=== PATIENT | male | born 1970 | race Caucasian/White ===

== ENCOUNTER 2022-07-06 19:00 | Emergency (ER) | payer MEDICAID ==
[~2022-07-06] VITALS: Ht 190.5 cm; Wt 85.0 kg
[~2022-07-06 19:00] MED LIST: ACYC-129 PO; CLIN-26 PO; RIFA300C9 PO
[2022-07-06] MEDS ORDERED: cephalexin 500mg capsule PO ONE (21:55)
[2022-07-06] MEDS ORDERED: UREA227C4 TOP (21:56)
[2022-07-06] MEDS ORDERED: CEPH500C2 PO (21:58)
[2022-07-06 23:20] LABS: CLARITY,URINE CLEAR (Clear); COLOR,URINE YELLOW (Yellow); GLUCOSE, URINE NEGATIVE (Neg); KETONES,URINE 15 mg/dl (Neg); LEUKOCYTE ESTERASE ,URINE NEGATIVE (Neg); NITRITES, URINE NEGATIVE (Neg); OCCULT BLOOD,URINE NEGATIVE (Neg); PROTEIN,URINE NEGATIVE (Neg); UROBILINOGEN,URINE 0.2 E.U/dL (0.2-1.0)
[2022-07-06 23:21] LABS: UA COLLECTION TYPE CLN CATCH MIDSTREAM
[2022-07-06 23:33] VITALS: BP 136/85
== END 2022-07-06 22:30 | disposition home or self-care (01) ==
LOC: ER 19:01
DX: Q82.8 Other specified congenital malformations of skin (principal); K59.00 Constipation, unspecified; Z72.89 Other problems related to lifestyle; Z88.1 Allergy status to other antibiotic agents; Z79.2 Long term (current) use of antibiotics; Z79.899 Other long term (current) drug therapy
CPT/HCPCS: 81003; 93005; 99284

== ENCOUNTER 2022-10-25 17:03 | Emergency (ER) | payer MEDICAID ==
[~2022-10-25] VITALS: Ht 190.5 cm; Wt 97.7 kg
[~2022-10-25 17:03] MED LIST changes: +UREA227C4 TOP
[2022-10-25 17:06] VITALS: BP 125/83
== END 2022-10-25 18:53 | disposition home or self-care (01) ==
LOC: ER 17:03
DX: S00.81XA Abrasion of other part of head, initial encounter (principal); Z72.89 Other problems related to lifestyle; Z88.1 Allergy status to other antibiotic agents; Z79.2 Long term (current) use of antibiotics; Z79.899 Other long term (current) drug therapy; W19.XXXA Unspecified fall, initial encounter; Y93.89 Activity, other specified; Y92.89 Other specified places as the place of occurrence of the external cause; Y99.8 Other external cause status
CPT/HCPCS: 70450; 99284

== ENCOUNTER 2024-04-26 13:10 | Emergency (ER) | payer MEDICAID ==
[~2024-04-26] VITALS: Ht 190.5 cm; Wt 86.4 kg
[~2024-04-26 13:10] MED LIST changes: +RIFA300C65 PO; -RIFA300C9 PO
[2024-04-26] MEDS: ondansetron 4mg rapidly disintigrating tab PO ONE (14:54)
[2024-04-26] MEDS: HYDROcodone/acetaminophen 10/325mg tab PO ONE (14:55)
[2024-04-26 15:11] LABS: BASOPHILS % (AUTO) 0.6 % (0-1); EOSINOPHILS # (AUTO) 0.4 X10'3 (0-0.9); EOSINOPHILS % (AUTO) 5.4 % (0-6); HEMATOCRIT 39.2 % (42.0-52.0); HEMOGLOBIN 12.9 g/dl (14.0-17.9); LYMPHOCYTES % (AUTO) 13.9 % (21-51); MEAN CORPUSCULAR HEMOGLOBIN 29.5 PG (27.0-31.0); MEAN CORPUSCULAR HGB CONC 32.9 g/dL (33.0-36.5); MEAN CORPUSCULAR VOLUME 89.5 FL (78-98); MEAN PLATELET VOLUME 6.9 FL (7.4-10.4); MONOCYTES # (AUTO) 0.4 X10'3 (0-0.9); MONOCYTES % (AUTO) 5.6 % (2-12); NEUTROPHILS # (AUTO) 5.4 X10'3 (1.8-7.7); NEUTROPHILS % (AUTO) 74.5 % (42-75); PLATELET COUNT 258 X10'3 (140-440); RED BLOOD COUNT 4.38 X10'6 (4.70-6.10); RED CELL DISTRIBUTION WIDTH 14.7 % (11.5-14.5); WHITE BLOOD COUNT 7.2 X10'3 (4.5-11.0)
[2024-04-26 15:17] LABS: APTT 26 SECONDS (22-32); INR 1.1 INR
[2024-04-26 15:21] LABS: ALANINE AMINOTRANSFERASE 15 U/L (12-78); ALBUMIN 3.3 G/DL (3.4-5.0); ALBUMIN/GLOBULIN RATIO 0.8 (1.1-1.5); ALKALINE PHOSPHATASE 58 IU/L (46-116); ANION GAP 6 (8-16); ASPARTATE AMINO TRANSFERASE 18 U/L (10-37); BILIRUBIN,TOTAL 0.5 MG/DL (0.1-1.0); BLOOD UREA NITROGEN 13 MG/DL (7-18); BUN/CREATININE RATIO 12.9 (10.0-20.0); C-REACTIVE PROTEIN 0.31 MG/DL (0.0-0.5); CALCIUM 8.7 MG/DL (8.5-10.1); CHLORIDE 102 MMOL/L (99-107); CREATININE 1.01 MG/DL (0.60-1.10); GLUCOSE 95 MG/DL (70-104); POTASSIUM 4.5 MMOL/L (3.5-5.1); SODIUM 138 MMOL/L (135-145); TOTAL CARBON DIOXIDE 29.7 MMOL/L (24-32); TOTAL PROTEIN 7.6 G/DL (6.4-8.2); eCRCL 101 ML/MIN; eGFR 77 ML/MIN
[2024-04-26] MEDS: clindamycin 300mg/D5W 50mL 50 ML IV STA (16:25)
[2024-04-26] MEDS: ketorolac trometh. 30mg/ml inj. IM ONE (16:25)
[2024-04-26] MEDS: diphenhydrAMINE 50 mg/ml inj IV ONE (16:26)
[2024-04-26] MEDS: dexamethasone sod phosphate 10mg/ml inj IV STA (16:26)
[2024-04-26] MEDS: CefTRIAXone/D5W-Rocephin 1gm 50 ML IV STA (16:56)
[2024-04-26 17:50] VITALS: BP 119/72; PULSE 58; RESP 17; TEMP 97.3; O2SAT 100
== END 2024-04-26 17:55 | disposition home or self-care (01) ==
LOC: ER 13:11
DX: Q82.8 Other specified congenital malformations of skin (principal); Z88.1 Allergy status to other antibiotic agents; Z79.899 Other long term (current) drug therapy; Z79.2 Long term (current) use of antibiotics
CPT/HCPCS: 36415; 80053; 83605; 84145; 85025; 85610; 85651; 85730; 86140; 87040; 96365; 96367; 96372; 96375; 99285; J0696; J1100; J1200; J1885; J3490